=== PATIENT | female | born 1990 | race Caucasian/White ===

== ENCOUNTER 2017-04-12 12:37 | Day surgery (SDC) | payer BC ==
[~2017-04-12] VITALS: Ht 165.1 cm; Wt 56.8 kg
[2017-04-12 13:50] VITALS: BP 121/70
[2017-04-12] MEDS ORDERED: AMPH20TA2 PO (13:57)
[2017-04-12] MEDS ORDERED: ISOPROTERENOL 0.2MG/ML, 5ML ONE ×2 (14:07→14:36)
== END 2017-04-12 15:15 | disposition home or self-care (01) ==
LOC: CACL 12:37
PROVIDERS: ATTEND Internal Medicine Cardiovascular Disease
DX: R55 Syncope and collapse (principal); I47.2 Ventricular tachycardia; Z72.89 Other problems related to lifestyle
CPT/HCPCS: 93660

== ENCOUNTER 2017-07-04 09:16 | Day surgery (SDC) | payer OTHER, BC ==
[~2017-07-04] VITALS: Ht 165.1 cm; Wt 58.2 kg
[~2017-07-04 09:16] MED LIST: AMPH20TA2 PO
[2017-07-04] MEDS ORDERED: SODIUM CHLORIDE 0.9% 1,000 ML IV SCH (10:26)
[2017-07-04 10:30] VITALS: BP 123/75
[2017-07-04] MEDS ORDERED: LIDOCAINE 2%, 20ML ONE (10:51)
[2017-07-04] MEDS ORDERED: LIDOCAINE/PF 1%-EPI 1:200K, 30 ML ONE (10:51)
[2017-07-04] MEDS ORDERED: PLEASE ENTER HEIGHT AND WEIGHT MC SCH (11:00)
== END 2017-07-04 12:00 | disposition home or self-care (01) ==
LOC: CACL 09:16
PROVIDERS: ATTEND Internal Medicine Cardiovascular Disease
DX: Z45.09 Encounter for adjustment and management of other cardiac device (principal); I47.2 Ventricular tachycardia; Z88.0 Allergy status to penicillin
CPT/HCPCS: 33284; J3490